=== PATIENT | male | born 1990 | race Caucasian/White ===

== ENCOUNTER 2025-07-29 15:58 | Emergency (ER) | payer BC ==
[~2025-07-29] VITALS: Ht 180.3 cm; Wt 77.1 kg
[2025-07-29] MEDS: SODIUM CHLORIDE 0.9% 1000ML 1,000 ML IV STA ×2 (16:44)
[2025-07-29 17:18] LABS: BASOPHILS % 0.6 % (0.0-1.0); EOSINOPHILS % 0.9 % (0.0-6.0); LYMPHOCYTES % 42.1 % (18.0-39.1); MONOCYTES % 8.7 % (4.4-11.3); NEUTROPHILS % 46.2 % (38.7-80.0); RED CELL DISTRIBUTION WIDTH 12.1 % (11.7-14.4)
[2025-07-29 17:35] LABS: INR 1.0
[2025-07-29 17:46] LABS: EST GLOMERULAR FILTRATION RATE 114 ML/MIN (>=60)
[2025-07-29 17:57] LABS: ETHANOL 108.0 mg/dL (0.0-10.0)
[2025-07-29 18:02] LABS: CORONAVIRUS COVID-19 AG NEGATIVE (NEGATIVE)
[2025-07-29] MEDS ORDERED: IOPAMIDOL 370 MG/ML 100 ML INFUS..BTL INJ ONE (18:13)
[2025-07-29 18:48] LABS: AMPHETAMINES SCREEN,URINE NEGATIVE (NEGATIVE); CANNABINOIDS SCREEN,URINE NEGATIVE (NEGATIVE); COCAINE SCREEN,URINE NEGATIVE (NEGATIVE); LEUKOCYTE ESTERASE ,URINE NEGATIVE (NEGATIVE); METHADONE SCREEN, URINE NEGATIVE (NEGATIVE); OPIATES SCREEN,URINE NEGATIVE (NEGATIVE); PROTEIN,URINE DIPSTICK NEGATIVE (NEGATIVE)
[2025-07-29 18:49] LABS: URINE UROBILINOGEN 1 mg/dL (0.2 - 1)
[2025-07-29 18:56] VITALS: TEMP 97.7
[2025-07-29 21:08] VITALS: PULSE 73; RESP 12
[2025-07-29 21:47] VITALS: BP 127/103; PULSE 105; RESP 12; TEMP 98.1; O2SAT 99
== END 2025-07-29 21:54 | disposition home or self-care (01) ==
LOC: ER 16:34
DX: R41.0 Disorientation, unspecified (principal); R51.9 Headache, unspecified; E86.0 Dehydration; F10.129 Alcohol abuse with intoxication, unspecified; R16.1 Splenomegaly, not elsewhere classified; F41.9 Anxiety disorder, unspecified; G47.00 Insomnia, unspecified
CPT/HCPCS: 36415; 70450; 71045; 74177; 80053; 80307; 80320; 80329 ×2; 81001; 82550; 82948; 83690; 83735; 84484; 85025; 85610; 85730; 87086; 87426; 93005; 99284; J7030; Q9967